=== PATIENT | female | born 1965 | race Caucasian/White ===

== ENCOUNTER 2021-11-30 12:43 | Outpatient (CLI) | payer BC, SELFPAY ==
--- NOTE | 2021-11-30 13:00 | CRLHL7_ITS ---
For Patients: As a result of the Century Cures Act, medical imaging exams and procedure reports are released immediately into your electronic medical record. You may view this report before your referring provider. If you have questions, please contact your health care provider. DXA BONE MINERAL DENSITY STUDY Current height (in): 70.5. Weight (lb): 260. Menopause age: 51. Ethnicity: White. 1. Have you had a previous hip or vertebral fracture? No. 2. Have you had any fractures during your adult life which did not result from significant trauma (e.g., auto accident)? No. 3. Did either of your parents have a hip fracture? Yes. 4. Do you smoke? No. 5. Have you ever taken Glucocorticoids? No. 6. Do you have rheumatoid arthritis? No. 7. Do you have secondary osteoporosis? No. 8. Do you drink 3 or more alcoholic drinks per day? No. 9. Are you being treated for osteoporosis? No. 10. Have you ever taken any of the following medications: Actonel, Evista, Fosamax, Miacalcin, Reclast, Boniva, Forteo, HRT (i.e. estrogen/hormone therapy), Protelos, Prolia, Vitamin D, Calcium, other ??? please specify. ANSWER: Yes, vitamin D, HRT, and calcium. 11. Do you have any of the following medical conditions: Anorexia or bulimia, asthma or emphysema, end stage renal disease, hyperparathyroidism, any seizure disorders, cancer, inflammatory bowel diseases, hysterectomy, other ??? please specify. ANSWER: Yes, cancer. 12. What was your maximum height (inches)? 71. 13. Do you perform weight bearing exercise regularly? No. 14. Do you regularly consume dairy products? Yes. 15. Do you drink caffeinated beverages? Yes. If female: 16. At what age did your period start? 12. 17. Are you premenopausal? No. 18. How many full term pregnancies have you had? 1. 19. Have you ever missed your period for more than 6 months in a row (not including or menopause)? Not provided. TECHNIQUE: Bone mineral density study was performed using the [employer]. FINDINGS: The results of the study expressed as bone mineral density (BMD) are as follows: Lumbar spine L1, L2, L4: BMD: 1.170 g/cm2. T-score: 1.2. Z-score: 2.5 Neck Left: BMD: 0.938 g/cm2. T-score: 0.8. Z-score: 2.0 Right: BMD: 0.928 g/cm2. T-score: 0.7. Z-score: 1.9 Total Left: BMD: 1.200 g/cm2. T-score: 2.1. Z-score: 2.9 Right: BMD: 1.183 g/cm2. T-score: 2.0. Z-score: 2.8 Radius Left 33%: BMD: 0.756 g/cm2. T-score: 1.0. Z-score: 2.2 IMPRESSION: Normal bone density. COMPARISON: Compared with scan of 11/27/2019, the bone mineral density has increased by 0.1 percent at the spine, decreased by 2.5 percent at the hip, and increased by 2.8 percent at the left radius. Ian Fitch M.D. Diagnostic Radiologist [email or web address] RASHID/syed lynch/Dictated by: Ian Fitch MD @ 12/01/2021 9:15:00 AM (Electronically Signed)
== END 2021-11-30 12:44 | disposition home or self-care (01) ==
PROVIDERS: Visit Provider Internal Medicine Hematology & Oncology
DX: Z13.820 Encounter for screening for osteoporosis (principal); C50.912 Malignant neoplasm of unspecified site of left female breast
CPT/HCPCS: 77080

== ENCOUNTER 2021-12-28 13:50 | Outpatient (RCR) | payer BC, SELFPAY ==
--- NOTE | 2022-05-12 11:03 | ONC.NURNOTE ---
LM for pt to call back to discuss changes in [facility] program and transition of Dr. Ledesma to [facility] returning Spring 2022 and determine if she wants to cont care here or transfer elsewhere.
== END 2022-06-26 23:59 | disposition home or self-care (01) ==
LOC: CCIC 13:50
PROVIDERS: PCP Physician Assistant; Visit Provider Internal Medicine Hematology & Oncology
DX: C50.911 Malignant neoplasm of unspecified site of right female breast (principal); Z17.0 Estrogen receptor positive status [ER+]; Z79.811 Long term (current) use of aromatase inhibitors; M79.606 Pain in leg, unspecified; R25.2 Cramp and spasm; R23.2 Flushing; T45.1X5A Adverse effect of antineoplastic and immunosuppressive drugs, initial encounter
CPT/HCPCS: 99212; 99213; 99214